=== PATIENT | female | born 1985 | race African-American/Black ===

== ENCOUNTER 2016-12-25 15:39 | Emergency (ER) | payer OTHER ==
[~2016-12-25] VITALS: Ht 165.1 cm; Wt 91.6 kg
[2016-12-25 15:49] VITALS: BP 126/70
--- NOTE | 2016-12-25 16:20 | NUR ---
URINE SAMPLE SENT TO THE LAB.
--- NOTE | 2016-12-25 16:23 | NUR ---
LAB AT THE BEDSIDE FOR BLOOD DRAW.
[2016-12-25 16:28] LABS: BASOPHILS % (AUTO) 0.3 % (0.0-2.0); EOSINOPHILS # (AUTO) 0.1 /CMM (0.0-0.7); EOSINOPHILS % (AUTO) 0.8 % (0.0-6.0); HEMATOCRIT 38 % (33-45); HEMOGLOBIN 12.1 g/dL (11.5-14.8); LYMPHOCYTES # (AUTO) 2.7 /CMM (0.8-4.8); LYMPHOCYTES % (AUTO) 26.9 % (20.0-44.0); MEAN CORPUSCULAR HEMOGLOBIN 26 PG (26.0-33.0); MEAN CORPUSCULAR HGB CONC 32 g/dl (31.0-36.0); MEAN CORPUSCULAR VOLUME 79 fL (82-100); MONOCYTES # (AUTO) 0.4 /CMM (0.1-1.30); MONOCYTES % (AUTO) 4.3 % (2.0-12.0); NEUTROPHILS % (AUTO) 67.7 % (43.0-81.0); PLATELET COUNT (AUTO) 402 /CMM (150-450); RED BLOOD CELL COUNT(AUTO) 4.73 MIL/uL (4.0-5.2); WHITE BLOOD COUNT (AUTO) 10.2 K/uL (4.3-11.0)
[2016-12-25 16:37] LABS: CALCIUM, SERUM 9.1 mg/dL (8.5-10.1); CARBON DIOXIDE 32 mmol/L (21-32); CHLORIDE 105 mmol/L (98-107); GFR 78 mL/min (>60); GLUCOSE 75 mg/dL (74-106); POTASSIUM 4.5 mmol/L (3.5-5.1); SODIUM SERUM 140 mmol/L (136-145); UREA NITROGEN, BLOOD 14 mg/dL (7-18)
[2016-12-25 16:46] LABS: TROPONIN I < 0.017 ng/mL (0.00-0.056)
[2016-12-25 17:02] LABS: D-DIMER 0.32 mg/L(FEU (0.17-0.50); INR 0.89 (0.87-1.13); PROTHROMBIN TIME 9.5 SECS (9.5-12.7)
== END 2016-12-25 17:42 | disposition home or self-care (01) ==
LOC: ER 15:40
DX: R07.9 Chest pain, unspecified (principal); R05 Cough
CPT/HCPCS: 36415; 71010; 80048; 84484; 84703; 85025; 85378; 85730; 93005; 99285; A4606; Z7610

== ENCOUNTER 2019-05-06 21:41 | Emergency (ER) | payer OTHER ==
[~2019-05-06] VITALS: Ht 165.1 cm; Wt 98.9 kg
[2019-05-06 21:50] VITALS: BP 115/76
[2019-05-06 22:31] LABS: BASOPHILS % (AUTO) 0.5 % (0.0-2.0); EOSINOPHILS % (AUTO) 1.9 % (0.0-6.0); HEMATOCRIT 35 % (33-45); HEMOGLOBIN 11.5 g/dL (11.5-14.8); LYMPHOCYTES # (AUTO) 2.6 /CMM (0.8-4.8); LYMPHOCYTES % (AUTO) 30.1 % (20.0-44.0); MEAN CORPUSCULAR HGB CONC 33 g/dl (31.0-36.0); MEAN CORPUSCULAR VOLUME 80 fL (82-100); MONOCYTES # (AUTO) 0.6 /CMM (0.1-1.30); MONOCYTES % (AUTO) 6.5 % (2.0-12.0); NEUTROPHILS # (AUTO) 5.3 /CMM (1.8-8.9); PLATELET COUNT (AUTO) 427 /CMM (150-450); RED BLOOD CELL COUNT(AUTO) 4.36 MIL/uL (4.0-5.2); WHITE BLOOD COUNT (AUTO) 8.8 K/uL (4.3-11.0)
[2019-05-06 22:38] LABS: CALCIUM, SERUM 9.8 mg/dL (8.5-10.1); CREATININE 0.9 mg/dL (0.6-1.3)
[2019-05-06 22:39] LABS: MAGNESIUM 1.9 mg/dL (1.8-2.4)
== END 2019-05-06 23:13 | disposition home or self-care (01) ==
LOC: ER 21:45
DX: R25.3 Fasciculation (principal)
CPT/HCPCS: 36415; 80048-TC; 83735-TC; 85025-TC

== ENCOUNTER 2020-03-16 12:31 | Emergency (ER) | payer SELFPAY ==
[~2020-03-16] VITALS: Ht 165.1 cm; Wt 108.9 kg
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
--- NOTE | 2020-03-16 14:34 | NUR ---
PROVIDED W/ RADIOLOGY COPIES. Crutches dispensed. Pt instructed on proper use of crutches. Patient able to demonstrate correct use of crutches. Patient discharged to home in stable condition. Written and verbal after care instructions given. Patient verbalizes understanding of instruction.
[2020-03-16 14:35] VITALS: BP 125/74
== END 2020-03-16 14:35 | disposition home or self-care (01) ==
LOC: ER 12:31
DX: M25.561 Pain in right knee (principal)
CPT/HCPCS: 73560-TC; 73590-TC

== ENCOUNTER 2020-09-01 16:04 | Emergency (ER) | payer MEDICAID ==
[~2020-09-01] VITALS: Ht 165.1 cm; Wt 104.3 kg
--- NOTE | 2020-09-01 16:10 | NUR ---
AAOX3, came to ER c/o on/off midsternal chest pain x 3 weeks, non radiating, denies sob. RR is even and unlabored with NAD noted. Skin is warm and dry. EKG in progess. Awaiting md for eval.
--- NOTE | 2020-09-01 16:30 | NUR ---
MANN Castillo at bs for eval.
[2020-09-01 17:49] LABS: CALCIUM, SERUM 9.2 mg/dL (8.5-10.1); CARBON DIOXIDE 28 mmol/L (21-32); CHLORIDE 103 mmol/L (98-107); CREATININE 0.9 mg/dL (0.6-1.3); GLUCOSE 100 mg/dL (74-106); POTASSIUM 3.5 mmol/L (3.5-5.1); SODIUM SERUM 139 mmol/L (136-145); UREA NITROGEN, BLOOD 12 mg/dL (7-18)
[2020-09-01 18:13] LABS: BASOPHILS # (AUTO) 0.1 /CMM (0.0-0.2); BASOPHILS % (AUTO) 0.6 % (0.0-2.0); EOSINOPHILS % (AUTO) 0.7 % (0.0-6.0); HEMATOCRIT 34 % (33-45); HEMOGLOBIN 11.1 g/dL (11.5-14.8); LYMPHOCYTES # (AUTO) 2.5 /CMM (0.8-4.8); LYMPHOCYTES % (AUTO) 26.9 % (20.0-44.0); MEAN CORPUSCULAR HGB CONC 32 g/dl (31.0-36.0); MEAN CORPUSCULAR VOLUME 80 fL (82-100); MONOCYTES # (AUTO) 0.5 /CMM (0.1-1.30); NEUTROPHILS # (AUTO) 6.2 /CMM (1.8-8.9); NEUTROPHILS % (AUTO) 66.8 % (43.0-81.0); PLATELET COUNT (AUTO) 372 /CMM (150-450); RED BLOOD CELL COUNT(AUTO) 4.28 MIL/uL (4.0-5.2); WHITE BLOOD COUNT (AUTO) 9.3 K/uL (4.3-11.0)
--- NOTE | 2020-09-01 19:19 | NUR ---
Patient discharged to home in stable condition. Written and verbal after care instructions given. Patient verbalizes understanding of instruction.
[2020-09-01 19:20] VITALS: BP 124/66
== END 2020-09-01 19:20 | disposition home or self-care (01) ==
LOC: ER 16:04
DX: R07.89 Other chest pain (principal); Z20.822 Contact with and (suspected) exposure to COVID-19; F17.210 Nicotine dependence, cigarettes, uncomplicated; J45.909 Unspecified asthma, uncomplicated; F41.9 Anxiety disorder, unspecified; R25.2 Cramp and spasm
CPT/HCPCS: 36415; 71045; 80048; 84484; 85025; 93005; 93971; 99285; 99406; U0003; C9803

== ENCOUNTER 2023-01-14 20:06 | Emergency (ER) | payer MEDICAID ==
[~2023-01-14] VITALS: Ht 165.1 cm; Wt 99.8 kg
--- NOTE | 2023-01-14 20:13 | NUR ---
BIBSELF FROM HOME C/O BODYACHES, CHILLS, COLD LIKE SYMPTOMS SINCE SUNDAY. UPON TRIAGE TEMP 101.1. PT A/OX4. TOLERATING R/A WELL WITH NO RESP DISTRESS. SAFETY MEASURES IN PLACE .
[2023-01-14] MEDS ORDERED: ACETAMINOPHEN ES 500 MG TABLET ONE (20:36)
[2023-01-14] MEDS ORDERED: GUAI1TBM19 PO (20:39)
[2023-01-14] MEDS ORDERED: BENZ-13 PO (20:39)
--- NOTE | 2023-01-14 20:39 | NUR ---
COVID AND FLU A/B ANTIGEN COLLECTED SENT TO LAB
--- NOTE | 2023-01-14 20:46 | NUR ---
Patient discharged to home in stable condition. RX Written and verbal after care instructions given. Patient verbalizes understanding of instruction.
[2023-01-14 20:47] VITALS: BP 125/75
[2023-01-14] MEDS ORDERED: ACETAMINOPHEN ES 500 MG TABLET PO ONE (21:00)
--- NOTE | 2023-01-14 23:02 | NUR ---
CALLED PT TO INFORMED HER ABOUT POSITIVE COVID, NO ANSWER, UNABLE TO LEAVE A MEASSAGE
== END 2023-01-14 20:47 | disposition home or self-care (01) ==
LOC: ER 20:11
DX: U07.1 COVID-19 (principal); J06.9 Acute upper respiratory infection, unspecified; R50.9 Fever, unspecified; J45.909 Unspecified asthma, uncomplicated; F41.9 Anxiety disorder, unspecified; F17.200 Nicotine dependence, unspecified, uncomplicated; Z98.890 Other specified postprocedural states
CPT/HCPCS: 99283; 87426; 87804 ×2; C9803

== ENCOUNTER 2023-01-19 15:07 | Emergency (ER) | payer MEDICAID ==
[~2023-01-19] VITALS: Ht 167.6 cm; Wt 99.8 kg
[~2023-01-19 15:07] MED LIST: BENZ-13 PO; GUAI1TBM19 PO
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
[2023-01-19] MEDS ORDERED: IBUPROFEN 400 MG TABLET ONE (16:59)
[2023-01-19] MEDS ORDERED: CYCLOBENZAPRINE 10 MG TABLET ONE (16:59)
[2023-01-19] MEDS ORDERED: IBUPROFEN 400 MG TABLET PO ONE (17:00)
[2023-01-19] MEDS ORDERED: CYCLOBENZAPRINE 10 MG TABLET PO ONE (17:00)
[2023-01-19] MEDS ORDERED: CYCL5TAB PO (17:11)
[2023-01-19 17:31] VITALS: BP 115/85
--- NOTE | 2023-01-19 17:31 | NUR ---
Patient discharged to home in stable condition. Written and verbal after care instructions given. Patient verbalizes understanding of instruction.
== END 2023-01-19 17:32 | disposition home or self-care (01) ==
LOC: ER 15:16
DX: M25.511 Pain in right shoulder (principal); M25.572 Pain in left ankle and joints of left foot; J45.909 Unspecified asthma, uncomplicated; F41.9 Anxiety disorder, unspecified; F17.200 Nicotine dependence, unspecified, uncomplicated; Z98.890 Other specified postprocedural states; Z79.899 Other long term (current) drug therapy

== ENCOUNTER 2023-08-26 19:57 | Emergency (ER) | payer MEDICAID ==
[~2023-08-26] VITALS: Ht 165.1 cm; Wt 104.3 kg
[~2023-08-26 19:57] MED LIST changes: +CYCL5TAB PO; -GUAI1TBM19 PO
[2023-08-26 21:18] LABS: BASOPHILS # (AUTO) 0.1 K/uL (0.0-0.2); EOSINOPHILS # (AUTO) 0.1 K/uL (0.0-0.7); EOSINOPHILS % (AUTO) 1.2 % (0.0-6.0); HEMATOCRIT 34 % (33-45); HEMOGLOBIN 10.6 g/dL (11.5-14.8); LYMPHOCYTES # (AUTO) 3.2 K/uL (0.8-4.8); LYMPHOCYTES % (AUTO) 28.1 % (20.0-44.0); MEAN CORPUSCULAR HEMOGLOBIN 24 PG (26.0-33.0); MEAN CORPUSCULAR HGB CONC 31 g/dl (31.0-36.0); MEAN CORPUSCULAR VOLUME 77 fL (82-100); MONOCYTES # (AUTO) 0.5 K/uL (0.1-1.30); MONOCYTES % (AUTO) 4.7 % (2.0-12.0); NEUTROPHILS # (AUTO) 7.3 K/uL (1.8-8.9); PLATELET COUNT (AUTO) 416 K/uL (150-450); RED BLOOD CELL COUNT(AUTO) 4.39 MIL/uL (4.0-5.2); RED CELL DISTRIBUTION WIDTH 16.1 % (11.5-15.0); WHITE BLOOD COUNT (AUTO) 11.2 K/uL (4.3-11.0)
[2023-08-26 21:27] LABS: CALCIUM, SERUM 9.7 mg/dL (8.5-10.1); CARBON DIOXIDE 28 mmol/L (21-32); CHLORIDE 102 mmol/L (98-107); CREATININE 0.8 mg/dL (0.6-1.3); GLUCOSE 94 mg/dL (74-106); POTASSIUM 3.7 mmol/L (3.5-5.1); SODIUM SERUM 136 mmol/L (136-145); UREA NITROGEN, BLOOD 11 mg/dL (7-18)
[2023-08-26 21:32] LABS: ALANINE AMINOTRANSFERASE 20 U/L (12-78); ALBUMIN 3.3 g/dL (3.4-5.0); ALKALINE PHOSPHATASE 75 U/L (46-116); ASPARTATE AMINOTRANSFERASE 12 U/L (15-37); BILIRUBIN,TOTAL 0.1 mg/dL (0.2-1.0); TOTAL PROTEIN, SERUM 7.6 g/dL (6.4-8.2)
[2023-08-26 22:04] LABS: PREGNANCY TEST URINE QUAL NEGATIVE (NEGATIVE)
[2023-08-26] MEDS ORDERED: KETOROLAC TROMETHAMINE INJ 30 MG/ML VIAL ONE (22:08)
[2023-08-26 22:25] VITALS: BP 140/90; TEMP 98.5; O2SAT 96
[2023-08-26 22:27] LABS: ANISOCYTOSIS 1+; BAND % (MANUAL) 3 % (0.0-5.0); BASOPHILS % (MANUAL) 0 % (0.0-2.0); EOSINOPHILS % (MANUAL) 0 % (0-4); LYMPHOCYTES % (MANUAL) 21 % (16-48); MONOCYTES % (MANUAL) 6 % (0-11.0); NEUTROPHILS % (MANUAL) 70 (42-76); PLATELET ESTIMATE ADEQUATE
[2023-08-26] MEDS ORDERED: KETOROLAC TROMETHAMINE INJ 30 MG/ML VIAL IV ONE (22:30)
== END 2023-08-26 22:25 | disposition home or self-care (01) ==
LOC: ER 20:02
DX: R07.89 Other chest pain (principal); J45.909 Unspecified asthma, uncomplicated; F41.9 Anxiety disorder, unspecified
CPT/HCPCS: 36415; 71045-TC; 80048-TC; 80076-TC; 84484-TC; 84703-TC; 85025-TC; 85378-TC; J1885